=== PATIENT | male | born 1960 | race Caucasian/White ===

== ENCOUNTER 2017-05-24 11:42 | Emergency (ER) | payer OTHER ==
[~2017-05-24] VITALS: Ht 182.9 cm; Wt 81.7 kg
[~2017-05-24 11:42] MED LIST: CIPRO500 MG PO; FLUNISOLIDE25 ML BOTH NARES; IBUPROFEN800 MG PO; LEVOTHYROXINE125 MCG PO; LISINOPRIL10 MG PO; MOBIC15 MG PO; SYNTHROID100 MCG PO; ZYRTEC10 M2 PO
[2017-05-24] MEDS ORDERED: TRAMADOL HCL50 MG PO (12:59)
[2017-05-24] MEDS ORDERED: NAPROSYN500 MG PO (12:59)
[2017-05-24 13:43] VITALS: BP 119/75
== END 2017-05-24 13:40 | disposition home or self-care (01) ==
LOC: EME 11:42
DX: S06.0X0A Concussion without loss of consciousness, initial encounter (principal); S83.91XA Sprain of unspecified site of right knee, initial encounter; S29.012A Strain of muscle and tendon of back wall of thorax, initial encounter; M54.2 Cervicalgia; V49.50XA Passenger injured in collision with unspecified motor vehicles in traffic accident, initial encounter; Y92.410 Unspecified street and highway as the place of occurrence of the external cause; E03.9 Hypothyroidism, unspecified; F17.200 Nicotine dependence, unspecified, uncomplicated
CPT/HCPCS: 99281; 99284

== ENCOUNTER 2017-05-27 11:46 | Emergency (ER) | payer OTHER ==
[~2017-05-27] VITALS: Ht 182.9 cm; Wt 80.6 kg
[~2017-05-27 11:46] MED LIST changes: +NAPROSYN500 MG PO; +TRAMADOL HCL50 MG PO
[2017-05-27 14:52] VITALS: BP 123/74
== END 2017-05-27 14:54 | disposition home or self-care (01) ==
LOC: EME 11:46
DX: F07.81 Postconcussional syndrome (principal); M25.561 Pain in right knee; M62.830 Muscle spasm of back; V49.50XD Passenger injured in collision with unspecified motor vehicles in traffic accident, subsequent encounter; F17.200 Nicotine dependence, unspecified, uncomplicated
CPT/HCPCS: 70450; 72040; 73564; 99281; 99283